=== PATIENT | female | born 1965 | race Caucasian/White ===

== ENCOUNTER 2021-11-20 13:03 | Outpatient (RCR) | payer OTHER | END 2021-12-01 | disposition home or self-care (01) | LOC: EDBD → ONC 13:03 | PROVIDERS: ATTEND Internal Medicine Hematology & Oncology | DX: D05.11 Intraductal carcinoma in situ of right breast (principal); Z90.13 Acquired absence of bilateral breasts and nipples; Z98.890 Other specified postprocedural states | CPT/HCPCS: 99214 ==